=== PATIENT | female | born 1935 ===

== ENCOUNTER → 2016-03-25 | Outpatient (CLI) | payer MEDICARE, BC ==
[~2016-03-25] MED LIST: ARICEPT10 MG PO; ASPI325T6 PO; ASPIRIN E.C. 8181 MG PO; B COMPLEX #11 TA1 PO; BIOTIN5000 MCG PO; IPRATROPIUM BROM3 M1 IH; IRON 27 MG PO; MULTI VITAMINS1 TAB PO; NORCO 325 MG-7.1 TAB PO; NOVOLOG FLEX100 U/ML SQ; NOVOLOG MIX 70/33 ML SQ; PRINIVIL10 MG PO; PROFERRIN ES12 MG PO; TYLENOL 500MG500 MG PO; XANAX .25M0.25 MG/TA PO; ZOCOR 10MG10 MG PO
== END ==
LOC: ZCOL.LAB 12:32
DX: L97.419 Non-pressure chronic ulcer of right heel and midfoot with unspecified severity (principal); E11.69 Type 2 diabetes mellitus with other specified complication

== ENCOUNTER 2016-06-26 20:56 | Inpatient (IN) | payer MEDICARE, BC ==
[~2016-06-26] VITALS: Ht 165.1 cm; Wt 88.4 kg
[2016-06-26 23:30] LABS: INR 1.1 (0.8-3.0); PROTHROMBIN TIME 11.7 SECONDS (9.7-12.8)
[2016-06-26 23:36] LABS: ADJUSTED CALCIUM 8.9 mg/dL (8.4-10.2); ALBUMIN 3.3 gm/dL (3.5-5.0); BILIRUBIN,TOTAL 0.5 mg/dL (0.0-1.0); CALCIUM 8.3 mg/dL (8.4-10.2); POTASSIUM 5.1 mmol/L (3.4-5.0); TOTAL PROTEIN 5.9 gm/dL (6.4-8.2)
[2016-06-26 23:52] LABS: CREATININE, serum 1.19 mg/dL (0.52-1.25)
[2016-06-27] VITALS (12 sets, daily range): BP systolic 101–151; BP diastolic 40–91; PULSE 59–88; TEMP 97.3–98.8
[2016-06-27 00:47] LABS: PH 5 (5-8); SQUAMOUS EPITHELIAL None Seen /hpf; URINE APPEARANCE Clear; URINE BACTERIA Moderate /hpf; URINE BILIRUBIN Negative (NEGATIVE); URINE BLOOD Negative (NEGATIVE); URINE COLOR Yellow; URINE GLUCOSE Negative (NEGATIVE); URINE KETONE Negative (NEGATIVE); URINE RBC 0-2 /hpf; URINE UROBILINOGEN Negative (NEGATIVE); URINE WBC 0-2 /hpf
[2016-06-27] MEDS ORDERED: TYLENOL 500MG500 MG PO (02:08)
[2016-06-27] MEDS ORDERED: XANAX .25M0.25 MG/TA PO (02:09)
[2016-06-27] MEDS ORDERED: ASPIRIN E.C. 8181 MG PO (02:09)
[2016-06-27] MEDS ORDERED: B COMPLEX #11 TA1 PO (02:10)
[2016-06-27] MEDS ORDERED: ARICEPT10 MG PO (02:11)
[2016-06-27] MEDS ORDERED: PROFERRIN ES12 MG PO (02:13)
[2016-06-27] MEDS ORDERED: IRON 27 MG PO (02:14)
[2016-06-27] MEDS ORDERED: PRINIVIL10 MG PO (02:14)
[2016-06-27] MEDS ORDERED: ZOCOR 10MG10 MG PO (02:15)
[2016-06-27] MEDS ORDERED: NOVOLOG FLEX100 U/ML SQ (02:16)
[2016-06-27 08:55] LABS: MEAN CELL VOLUME 105 fl (80.0-100.0); MEAN CORPUSCULAR HGB CONC 32 g/dl (33.0-37.0); MEAN PLATELET VOLUME 9.6 fl (7.4-10.4); PLATELET COUNT 183 K/mm3 (130-400); RED BLOOD COUNT 2.38 M/mm3 (4.10-5.30); REDCELL DISTRIBUTION WIDTH-CV 13.3 % (11.5-14.5); WHITE BLOOD COUNT 9.2 K/mm3 (4.8-10.8)
[2016-06-27 08:56] LABS: HEMOGLOBIN 7.9 g/dl (12.5-16.0); MEAN CORPUSCULAR HEMOGLOBIN 33 pg (27.0-31.0)
[2016-06-27 09:14] LABS: CALCIUM 7.9 mg/dL (8.4-10.2); CREATININE, serum 0.98 mg/dL (0.52-1.25); POTASSIUM 5.2 mmol/L (3.4-5.0)
[2016-06-27] MEDS ORDERED: NOVOLOG MIX 70/33 ML SQ (11:33)
[2016-06-27] MEDS ORDERED: BIOTIN5000 MCG PO (11:41)
[2016-06-27] MEDS ORDERED: MULTI VITAMINS1 TAB PO (11:43)
[2016-06-28 02:11] VITALS: BP 109/52; PULSE 66; TEMP 97.5
[2016-06-28 05:09] VITALS: BP 116/69; PULSE 66; TEMP 97.4
[2016-06-28 08:51] LABS: BASO # 0.1 (0.0-0.2); BASO % 0.6 % (0.0-2.0); EOS % 0.5 % (0-4.0); GRAN # 5.6 (1.4-6.5); GRAN % 67.8 % (42.2-75.2); LYMPH # 1.5 (1.2-3.4); MEAN CORPUSCULAR HGB CONC 33 g/dl (33.0-37.0); MEAN PLATELET VOLUME 9.8 fl (7.4-10.4); MONO # 1.1 (0.1-0.6); MONO % 12.7 % (1.7-9.3); PLATELET COUNT 136 K/mm3 (130-400); RED BLOOD COUNT 2.51 M/mm3 (4.10-5.30); REDCELL DISTRIBUTION WIDTH-CV 17.2 % (11.5-14.5); WHITE BLOOD COUNT 8.3 K/mm3 (4.8-10.8)
[2016-06-28 08:59] LABS: HEMATOCRIT 24.3 % (37.0-47.0); MEAN CELL VOLUME 97 fl (80.0-100.0); MEAN CORPUSCULAR HEMOGLOBIN 32 pg (27.0-31.0)
[2016-06-28 09:26] VITALS: BP 121/63; PULSE 73; TEMP 98.1
[2016-06-28 09:28] LABS: ADJUSTED CALCIUM 8.5 mg/dL (8.4-10.2); ALBUMIN 2.3 gm/dL (3.5-5.0); BILIRUBIN,TOTAL 0.6 mg/dL (0.0-1.0); CALCIUM 7.1 mg/dL (8.4-10.2); CREATININE, serum 0.83 mg/dL (0.52-1.25); POTASSIUM 4.5 mmol/L (3.4-5.0); TOTAL PROTEIN 4.4 gm/dL (6.4-8.2)
[2016-06-28 14:21] VITALS: BP 118/48; PULSE 70; TEMP 98.7
[2016-06-28 17:47] VITALS: BP 117/51; PULSE 64; TEMP 98.6
[2016-06-28 21:59] VITALS: BP 108/48; PULSE 65; TEMP 99.1
[2016-06-29 01:07] VITALS: BP 130/45; PULSE 69; TEMP 98.3
[2016-06-29 06:30] VITALS: BP 128/59; PULSE 77; TEMP 98.7
[2016-06-29 07:36] LABS: HEMATOCRIT 21.6 % (37.0-47.0); HEMOGLOBIN 7.1 g/dl (12.5-16.0)
[2016-06-29 10:16] VITALS: BP 121/50; PULSE 72; TEMP 98.1
[2016-06-29 13:25] VITALS: BP 114/57; PULSE 68; TEMP 98.4
[2016-06-29 18:08] VITALS: BP 127/51; PULSE 70; TEMP 98.2
[2016-06-29 20:49] VITALS: BP 116/45; PULSE 72; TEMP 99.3
[2016-06-30 01:36] VITALS: BP 152/58; PULSE 74; TEMP 97.4
[2016-06-30 05:15] VITALS: BP 145/84; PULSE 89; TEMP 98.8
[2016-06-30 07:17] LABS: HEMATOCRIT 22.9 % (37.0-47.0); HEMOGLOBIN 7.5 g/dl (12.5-16.0)
[2016-06-30 07:29] LABS: ADJUSTED CALCIUM 9.1 mg/dL (8.4-10.2); ALBUMIN 2.4 gm/dL (3.5-5.0); BILIRUBIN,TOTAL 0.7 mg/dL (0.0-1.0); CALCIUM 7.8 mg/dL (8.4-10.2); CREATININE, serum 0.8 mg/dL (0.52-1.25); POTASSIUM 4.5 mmol/L (3.4-5.0); TOTAL PROTEIN 4.9 gm/dL (6.4-8.2)
[2016-06-30] MEDS ORDERED: IPRATROPIUM BROM3 M1 IH (08:54)
[2016-06-30] MEDS ORDERED: ASPI325T6 PO (08:56)
[2016-06-30] MEDS ORDERED: XANAX .25M0.25 MG/TA PO (09:00)
[2016-06-30] MEDS ORDERED: NORCO 325 MG-7.1 TAB PO (09:00)
[2016-06-30 10:29] VITALS: BP 92/70; PULSE 65; TEMP 98.3
[2016-06-30 12:42] VITALS: BP 115/43
[2016-06-30 13:29] VITALS: BP 131/74; PULSE 71; TEMP 98
[2016-06-30 13:57] VITALS: BP 131/74; PULSE 71; TEMP 98
== END 2016-06-30 14:35 | DRG 481 ==
LOC: SURG 20:56
PROVIDERS: Family Medicine; Nurse Practitioner Family; Orthopaedic Surgery Sports Medicine; Physician Assistant
PROC: 0QSB04Z Reposition Right Lower Femur with Internal Fixation Device, Open Approach (ICD-10-PCS; principal; 2016-06-27 12:30)
DX: S72.401A Unspecified fracture of lower end of right femur, initial encounter for closed fracture (principal); M97.11XA Periprosthetic fracture around internal prosthetic right knee joint, initial encounter; N17.9 Acute kidney failure, unspecified; L97.419 Non-pressure chronic ulcer of right heel and midfoot with unspecified severity; D62 Acute posthemorrhagic anemia; Z66 Do not resuscitate; W18.30XA Fall on same level, unspecified, initial encounter; I25.10 Atherosclerotic heart disease of native coronary artery without angina pectoris; Z95.1 Presence of aortocoronary bypass graft; I12.9 Hypertensive chronic kidney disease with stage 1 through stage 4 chronic kidney disease, or unspecified chronic kidney disease; E11.22 Type 2 diabetes mellitus with diabetic chronic kidney disease; N18.9 Chronic kidney disease, unspecified; Z87.891 Personal history of nicotine dependence; Z95.0 Presence of cardiac pacemaker; E11.621 Type 2 diabetes mellitus with foot ulcer; E87.5 Hyperkalemia; Z79.4 Long term (current) use of insulin; J44.9 Chronic obstructive pulmonary disease, unspecified; D50.0 Iron deficiency anemia secondary to blood loss (chronic)
CPT/HCPCS: 99222-AI; 99232-AI; 99233-AI; 99239; A4315; A9284; C1713; C1776; J0690; J1815; J2250; J2270; J2405; J2704; J7030; P9016

== ENCOUNTER → 2016-07-23 | Outpatient (REF) | LOC: ZCOL.LAB 14:14 | DX: Z01.89 Encounter for other specified special examinations (principal) ==

== ENCOUNTER 2018-09-23 21:57 | Inpatient (IN) | payer MEDICARE, BC ==
[~2018-09-23] VITALS: Ht 165.1 cm; Wt 61.5 kg
[2018-09-24] LABS: HEMATOCRIT 28.1 % (37.0-47.0); HEMOGLOBIN 8.9 g/dl (12.5-16.0); MEAN CELL VOLUME 98 fl (80.0-100.0); MEAN CORPUSCULAR HEMOGLOBIN 31 pg (27.0-31.0); MEAN CORPUSCULAR HGB CONC 32 g/dl (33.0-37.0); MEAN PLATELET VOLUME 8.9 fl (7.4-10.4); PLATELET COUNT 323 K/mm3 (130-400); RED BLOOD COUNT 2.86 M/mm3 (4.10-5.30); REDCELL DISTRIBUTION WIDTH-CV 15.1 % (11.5-14.5)
[2018-09-24 00:12] LABS: BILIRUBIN,TOTAL 0.2 mg/dL (0.0-1.0); C-REACTIVE PROTEIN 0.6 mg/dL (0.0-0.9); CALCIUM 8.2 mg/dL (8.4-10.2); CREATININE, serum 0.94 (0.52-1.25); POTASSIUM 3.8 mmol/L (3.4-5.0); TOTAL PROTEIN 5.6 gm/dL (6.4-8.2)
[2018-09-24 00:14] LABS: COLLECTION METHOD CATHETER
[2018-09-24 00:22] LABS: PH 5 (5-8); SQUAMOUS EPITHELIAL None Seen /hpf; URINE APPEARANCE Clear; URINE BACTERIA Many /hpf; URINE BILIRUBIN Negative (NEGATIVE); URINE BLOOD Negative (NEGATIVE); URINE COLOR Yellow; URINE GLUCOSE Negative (NEGATIVE); URINE KETONE Negative (NEGATIVE); URINE LEUKOCYTE ESTERASE Negative (NEGATIVE); URINE NITRATE Negative (NEGATIVE); URINE PROTEIN(semi-quant) Negative (NEGATIVE); URINE RBC None Seen /hpf; URINE UROBILINOGEN Negative (NEGATIVE)
[2018-09-24 00:30] LABS: ANISOCYTOSIS 1+; BAND 6 % (0-10); LYMPHOCYTE 3 % (20.0-51.0); METAMYELOCYTE 2 % (0-0); NEUTROPHILS 86 % (42.0-75.2); PLATELET ESTIMATE NORMAL (NORMAL)
[2018-09-24 00:31] LABS: HYPOCHROMIA 1+
[2018-09-24 02:56] VITALS: BP 129/67; BP 157/20; PULSE 109; TEMP 98.3
[2018-09-24] MEDS ORDERED: NORCO 325 MG-51 TAB PO (03:10)
[2018-09-24] MEDS ORDERED: NYSTATIN CREAM15 GM TP (03:12)
[2018-09-24] MEDS ORDERED: PREPARATIO1 SUPP.REC RC (03:13)
[2018-09-24] MEDS ORDERED: PRILOSEC 20MG20 MG PO (03:14)
[2018-09-24] MEDS ORDERED: TESSALON P100 MG/CAP PO (03:18)
[2018-09-24] MEDS ORDERED: VITAMIN C500 MG PO (03:18)
[2018-09-24] MEDS ORDERED: XANAX .25M0.25 MG/TA PO ×2 (03:19)
[2018-09-24 06:41] LABS: HEMATOCRIT 27.2 % (37.0-47.0); HEMOGLOBIN 8.8 g/dl (12.5-16.0); MEAN CELL VOLUME 98 fl (80.0-100.0); MEAN CORPUSCULAR HEMOGLOBIN 32 pg (27.0-31.0); MEAN CORPUSCULAR HGB CONC 32 g/dl (33.0-37.0); MEAN PLATELET VOLUME 9.3 fl (7.4-10.4); PLATELET COUNT 307 K/mm3 (130-400); RED BLOOD COUNT 2.78 M/mm3 (4.10-5.30); REDCELL DISTRIBUTION WIDTH-CV 15.2 % (11.5-14.5)
[2018-09-24 06:56] LABS: ANION GAP 7 mmol/L (7-16); BLOOD UREA NITROGEN 20 mg/dL (7-17); CALCIUM 8.3 mg/dL (8.4-10.2); CARBON DIOXIDE 26 mmol/L (22-30); CHLORIDE 105 mmol/L (98-107); CREATININE, serum 0.85 (0.52-1.25); GLUCOSE 92 mg/dL (74-106); POTASSIUM 4.2 mmol/L (3.4-5.0); SODIUM 139 mmol/L (137-145)
[2018-09-24 07:08] LABS: TROPONIN-I < 0.012 ng/mL (0.000-0.035)
[2018-09-24 07:30] VITALS: BP 124/76; PULSE 73; TEMP 97.8
[2018-09-24 07:50] LABS: ANISOCYTOSIS 1+; BAND 6 % (0-10); EOSINOPHIL 1 % (0-4); LYMPHOCYTE 8 % (20.0-51.0); METAMYELOCYTE 1 % (0-0); NEUTROPHILS 83 % (42.0-75.2); PLATELET ESTIMATE NORMAL (NORMAL)
[2018-09-24 07:51] LABS: HYPOCHROMIA 1+
--- NOTE | 2018-09-24 09:12 | NUR ---
Report from VICTORINO Avendaño. Pt in bed with IVF to LAC, RFA dressed with mepilexes and karli, scab to right cheek, dry. Pt states name and , that she is in the hospital, before here she states she was at her apartment in [place]- pt came from [facility]. Pt yells out, "oh my god," and resists turning for ryan cares after stating she had a BM. [place] given for pain. Pt asked about her "teeth" and could not find any dentures in pt's belongings or room. Son Chandler visited briefly. Pt took pills one at a time with water. Briefs in place. Tele called to report HR in 130's briefly.
--- NOTE | 2018-09-24 10:20 | NUR ---
ERINN contacted patient's daughter/DPOA, Wally, about discharge planning. Patient lives at [facility]. Wally reports patient will return there upon discharge. ERINN completed choice form. Patient's PCP is Dr Ruano and [facility] provides all medications. Patient uses a wheelchair for mobility. Patient's DPOA is Wally and a copy is in the EMR. ERINN faxed updates to Wilmer.
--- NOTE | 2018-09-24 10:26 | NUR ---
Pt asleep with HOB at 45*, respirations with ease, alarm on, call lt in reach.
[2018-09-24 12:15] VITALS: BP 121/64; PULSE 70; TEMP 97.8
--- NOTE | 2018-09-24 14:55 | NUR ---
Pt's son Chandler and daughter visiting.
[2018-09-24 16:54] VITALS: BP 108/65; PULSE 100; TEMP 98.2
--- NOTE | 2018-09-24 17:25 | NUR ---
ALEJO Kemp reports pt's BG elevated, however, family has been visiting and found a milkshake carton in trash in room.
[2018-09-24 19:19] VITALS: BP 132/70; PULSE 54; TEMP 98.5
--- NOTE | 2018-09-24 19:48 | NUR ---
Pt conts to call out rather than use call light, and yells when assisted with rolling for incont cares. CNAs changing pt at shift change, report to VICTORINO Carnes. INF to FUNMI, yellow gripper socks, gown and tele in place.
--- NOTE | 2018-09-24 21:00 | NUR ---
Pt. laying in bed at this time. Pt. has been yelling out frequently through the evening. Giving pain meds and anxiety meds to help. Pt. is alert to self and that she is in the hospital. Pt. is not aware of the year or that she came from a [place] [facility]. IV to lt. ac patent, IV fluids infusing per orders. Call light within reach.
[2018-09-25] VITALS (7 sets, daily range): BP systolic 112–149; BP diastolic 56–90; PULSE 66–103; TEMP 97.6–98.2
--- NOTE | 2018-09-25 08:00 | NUR ---
PATIENT IS DROWSY BUT AROUSES EASILY TO NAME. PATIENT IS ALERT AND ORIENTED TO NAME, DATE, AND SHE SAYS THAT SHE KNOWS THAT SHE IS IN THE HOSPITAL. GENERALIZED WEAKNESS. IRREGULAR HEART RHYTHM WITH REGULAR RATE NOTED. TELE IN PLACE. PATIENT TOLERATING DIET WITHOUT N/V. POSITIVE PEDAL PULSES EQUAL BILATERALLY. SCD'S TO BLE. BLE ELEVATED WITH PILLOWS. PATIENT REPORTS A PRODUCTIVE COUGH. LACERATION TO RIGHT CHEEK WITH ECCHYMOSIS, LACERATION MANAGER PRICING WITH CLOSED SCAB. MULTIPLE SKIN TEARS TO RIGHT FOREARM DRESSED WITH A GAUZE & MIRIAM WRAP DRESSING AND IS CD&I. LEFT FOREARM SKIN TEAR DRESSED WITH A TEGADERM DRESSING AND IS CD&I. BLOODY DRAINAGE AROUND LEFT AC IV NOTED. IV FLUIDS DISCONNECTED. CALL LIGHT WITHIN REACH. NO OTHER NEEDS AT THIS TIME. FAMILY PRESENT AT THE BEDSIDE.
[2018-09-25 10:49] LABS: CREATININE, serum 0.71 (0.52-1.25)
--- NOTE | 2018-09-25 11:10 | NUR ---
EDIS RAGLAND NOTIFIED OF ORTHO CONSULT.
--- NOTE | 2018-09-25 19:13 | NUR ---
REPORT GIVEN TO VICTORINO GRANT.
--- NOTE | 2018-09-25 20:40 | NUR ---
Patient in bed, awake. States, 10/10 generalized pain after movement on/off bedpan. PO pain medication not due, IV pain medication given per order. Right hand skin tear open, and scant amount of blood noted. Site cleansed and badaid placed. Denies further needs at this time. Will continue to monitor.
[2018-09-26] VITALS (7 sets, daily range): BP systolic 116–135; BP diastolic 29–79; PULSE 71–85; TEMP 97.6–98.4
[2018-09-26 06:53] LABS: BASO # 0.1 (0.0-0.2); BASO % 0.7 % (0.0-2.0); EOS # 0.2 (0.0-0.7); EOS % 2.2 % (0-4.0); GRAN # 7.4 (1.4-6.5); LYMPH # 1.2 (1.2-3.4); LYMPH % 12.2 % (20.0-51.0); MEAN CELL VOLUME 99 fl (80.0-100.0); MEAN CORPUSCULAR HGB CONC 32 g/dl (33.0-37.0); MEAN PLATELET VOLUME 9.6 fl (7.4-10.4); MONO # 0.7 (0.1-0.6); MONO % 7.1 % (1.7-9.3); PLATELET COUNT 252 K/mm3 (130-400); RED BLOOD COUNT 2.65 M/mm3 (4.10-5.30); REDCELL DISTRIBUTION WIDTH-CV 15.5 % (11.5-14.5)
[2018-09-26 06:55] LABS: HEMATOCRIT 26.3 % (37.0-47.0); HEMOGLOBIN 8.3 g/dl (12.5-16.0); MEAN CORPUSCULAR HEMOGLOBIN 31 pg (27.0-31.0)
--- NOTE | 2018-09-26 07:00 | NUR ---
bedside shift report received from VICTORINO Garcia
--- NOTE | 2018-09-26 07:05 | NUR ---
End of shift report given to VICTORINO Schmitz.
--- NOTE | 2018-09-26 07:06 | NUR ---
Pt yelling out that she is in pain. Dilaudid 0.125mL given IV push.
[2018-09-26 07:11] LABS: CALCIUM 8.3 mg/dL (8.4-10.2); CREATININE, serum 0.85 (0.52-1.25); POTASSIUM 4.4 mmol/L (3.4-5.0)
--- NOTE | 2018-09-26 08:10 | NUR ---
continues to cry out and c/o pain, repositiooned to left side and cries out , was incontinent of urine and care provided, full assessment completed, see interventions for further info, dressing to right arm removed, has a mepiplex dressing to right forearm just below elbow that is CD&I, has 4-5cm skin tear to left elbow, covered with tegaderm and wrapped with gauze and karli wrap, medicated with hydrocodone 5mg 1 tab for c/os pain, breakfast ordered [id number] at bedside
--- NOTE | 2018-09-26 09:45 | NUR ---
resting in bed after breakfast, continues to c/o pain but states pain pill did help
--- NOTE | 2018-09-26 09:54 | NUR ---
SW attended clinical rounds. Patient's daughter in law, Paola, was present and voiced concerns with patient returning to [facility]. SW informed Paola that patient's daughter/DPOA, Wally, informed SW that she would like patient to return to [facility] when she is discharged. Paola reports she plans to speak with all 5 of patient's children about her concerns with the care she gets at [facility]. ERINN will contact Wally about Paola's concerns.
--- NOTE | 2018-09-26 10:07 | NUR ---
SW attempted to contact patient's daughter, Wally ([phone]), to discuss patient returing to [facility]. SW left a message.
--- NOTE | 2018-09-26 10:30 | NUR ---
resting quietly with family at bedside, medicated with scheduled tramadol 50mg po
--- NOTE | 2018-09-26 10:52 | NUR ---
Initial visit; Patient thanked Forensic Psychiatrist for looking in on her and giving her a drink of water and praying with her. Patient states she is in a great deal of pain when she moves. Forensic Psychiatrist stayed with her until the pain subsided and will check on her again.
--- NOTE | 2018-09-26 12:18 | NUR ---
physical therapy was in to work with patient and assited her out of bed and into recliner, now sitting up eating lunch, family at bedside
--- NOTE | 2018-09-26 13:00 | NUR ---
remains up in chair, encouraged to stay up for a while longer and verbalizes understanding, medicated with hydrocodone 5mg 1 tab, is quiet and denies pain while resting
--- NOTE | 2018-09-26 14:18 | NUR ---
SW met with patient, daughter-Micki, son-Chandler, [id number] Paola, and daughter/DPOA-Wally (via phone) to discuss discharge plan. Patient and family have voiced concerns with patient returning to [facility] and would prefer patient to go to [facility] for post acute rehab. SW explained to patient and family that in order for medicare to pay for a skilled stay, there a certian requirements that need to be met. SW explained the 3 midnight rule but also that 3 midnights may not be medically necessary. Patient reported that her first choice is [facility] and second choice is [facility]. SW will fax referral to [facility]. ERINN informed Faheem from [facility] of the concerns. Faheem reports she was unaware of families concerns with the care she is receiving.
--- NOTE | 2018-09-26 14:23 | NUR ---
resting in bed visiting and saying niurka with her daughter
--- NOTE | 2018-09-26 15:15 | NUR ---
assisted up to bedside commode, cries out with movement but is able to manage, then back to bed
--- NOTE | 2018-09-26 16:16 | NUR ---
ERINN faxed a referral to [facility] and also spoke with Calixto about the referral. Calixto reports she will have the clinical team review the referral.
--- NOTE | 2018-09-26 16:37 | NUR ---
ERINN spoke with Calixto from [facility]. Patient was not accepted to [facility] due to no beds in the type of unit she would need for dementia. ERINN then met with patient and daughter-iMcki. ERINN informed them that patient was not accepted to [facility]. ERINN also reported that Faheem from [facility] has been made aware of their concerns and she plans to have a care plan meeting with patient and family when patient returns to [facility]. Micki reports she will inform Wally about [facility] not accepting patient.
--- NOTE | 2018-09-26 18:00 | NUR ---
sitting up in bed eating supper, medicated with hydrocodone 5mg 1 tab
--- NOTE | 2018-09-26 18:57 | NUR ---
bedside shift report given to VICTORINO Geiger
--- NOTE | 2018-09-26 21:00 | NUR ---
Patient in bed, calls out "oh God" and reports pain to right leg 10/10. Medicated with scheduled Tramadol and Xanax at this time. Has fading bruise to right cheek. Skin tears to right arm covered with dressings. Right foot with mild swelling, to wear ortho shoe when up.
--- NOTE | 2018-09-26 22:00 | NUR ---
Assisted to BSC with 2 assist. Patient transfers fair, moderate yelling out with movement. Has reddened coccyx, does have egg crate mattress overlay on the bed. Able to void and assisted back to bed.
--- NOTE | 2018-09-26 23:58 | NUR ---
Yelling out in pain, Hi 2 tabs po now for pain 11/29.
[2018-09-27 03:39] VITALS: BP 126/70; PULSE 71; TEMP 98.1
--- NOTE | 2018-09-27 03:39 | NUR ---
Was assisted to BSC, max assist of 2. Poor weight bearing. Voids and back to bed. Reports pain 10/10 to right leg. Has not slept more than 30min. this shift, persistently yelling out. Medicated with [place] 5/325mg 2 tabs now and Xanax 0.25mg po now.
--- NOTE | 2018-09-27 05:45 | NUR ---
Patient assisted to BSC, voids and back to bed. Did rest 2 hours after meds were given. Takes AM med without problem. Has not been incontinent this shift.
[2018-09-27 07:05] LABS: BASO # 0.1 (0.0-0.2); BASO % 0.7 % (0.0-2.0); EOS # 0.3 (0.0-0.7); EOS % 4.1 % (0-4.0); GRAN # 4.5 (1.4-6.5); GRAN % 66.8 % (42.2-75.2); LYMPH # 1.3 (1.2-3.4); LYMPH % 18.5 % (20.0-51.0); MEAN CELL VOLUME 98 fl (80.0-100.0); MEAN CORPUSCULAR HGB CONC 32 g/dl (33.0-37.0); MONO # 0.6 (0.1-0.6); MONO % 8.9 % (1.7-9.3); PLATELET COUNT 214 K/mm3 (130-400); RED BLOOD COUNT 2.52 M/mm3 (4.10-5.30); REDCELL DISTRIBUTION WIDTH-CV 15.3 % (11.5-14.5)
[2018-09-27 07:08] LABS: HEMATOCRIT 24.6 % (37.0-47.0); HEMOGLOBIN 7.8 g/dl (12.5-16.0); MEAN CORPUSCULAR HEMOGLOBIN 31 pg (27.0-31.0)
[2018-09-27 07:15] LABS: CALCIUM 8.3 mg/dL (8.4-10.2); CREATININE, serum 0.9 (0.52-1.25); POTASSIUM 4.3 mmol/L (3.4-5.0)
--- NOTE | 2018-09-27 08:00 | NUR ---
PATIENT IS SITTING UP IN BED WITH FAMILY PRESENT AT BEDSIDE. PATIENT IS A&O TO NAME, BIRTHDATE AND THAT SHE'S IN THE HOSPITAL. VSS. BOWEL SOUNDS ACTIVE ALL FOUR QUADRANTS WITHOUT ANY COMPLAINTS OF N/V. GENERALIZED WEAKNESS NOTED. ABDOMEN IS DISTENDED BUT SOFT TO PALPATION. MULTIPLE SKIN TEARS TO RIGHT FOREARM DRESSED WITH MEPLEX AND GAUZE AND MIRIAM WRAP DRESSINGS. LEFT FOREARM TO INT. CALL LIGHT WITHIN REACH. PATIENT DENIES ANY OTHER NEEDS AT THIS TIME.
[2018-09-27] MEDS ORDERED: NORCO 325 MG-51 TAB PO (11:19)
[2018-09-27] MEDS ORDERED: SENNA-S 50 MG-81 TAB PO (11:20)
[2018-09-27] MEDS ORDERED: ULTRAM 50MG TAB50 MG PO (11:20)
[2018-09-27] MEDS ORDERED: MIRALAX PA17 GM/Dose PO (11:20)
--- NOTE | 2018-09-27 11:45 | NUR ---
SW attended clinical rounds. Patient's son-Chandler and daughter in law Paola were also present. Patient will discharge back to [facility] today. Patient will recieve medicare part B PT and OT. SW scheduled transportation for 3pm and faxed discharge orders.
[2018-09-27 12:12] VITALS: BP 126/70; PULSE 71; TEMP 98.1
[2018-09-27 12:55] VITALS: BP 143/66; PULSE 64; TEMP 98.2
--- NOTE | 2018-09-27 14:57 | NUR ---
PATIENT'S LEFT FOREARM INT DISCONTINUED PER PENDING DISCHARFE. TIP INTACT. PATIENT TOLERATED WELL. REPORT CALLED TO CADEN GRANDE AT [facility].
--- NOTE | 2018-09-27 15:20 | NUR ---
PATIENT PRE-MEDICATED WITH [facility] PRIOR TO TRANSPORT TO [facility].
--- NOTE | 2018-09-27 15:23 | NUR ---
PATIENT TAKEN TO PRIVATE TRANSPORT VEHICLE VIA WHEELCHAIR. PATIENT TRANSFERRED.
== END 2018-09-27 15:23 | DRG 535 ==
LOC: COL.ER 21:57 → SURG 09-24 02:16
PROVIDERS: Emergency Medicine; Nurse Practitioner Family; Physician Assistant; ADMIT Internal Medicine
DX: S32.592A Other specified fracture of left pubis, initial encounter for closed fracture (principal); J18.9 Pneumonia, unspecified organism; R52 Pain, unspecified; S32.591A Other specified fracture of right pubis, initial encounter for closed fracture; S01.411A Laceration without foreign body of right cheek and temporomandibular area, initial encounter; W06.XXXA Fall from bed, initial encounter; D35.02 Benign neoplasm of left adrenal gland; Z96.641 Presence of right artificial hip joint; Z95.1 Presence of aortocoronary bypass graft; I25.10 Atherosclerotic heart disease of native coronary artery without angina pectoris; E11.22 Type 2 diabetes mellitus with diabetic chronic kidney disease; N18.9 Chronic kidney disease, unspecified; I12.9 Hypertensive chronic kidney disease with stage 1 through stage 4 chronic kidney disease, or unspecified chronic kidney disease; I48.91 Unspecified atrial fibrillation; J44.9 Chronic obstructive pulmonary disease, unspecified; E78.5 Hyperlipidemia, unspecified; Z88.6 Allergy status to analgesic agent; Z88.1 Allergy status to other antibiotic agents; Z88.5 Allergy status to narcotic agent; Z88.8 Allergy status to other drugs, medicaments and biological substances; K59.00 Constipation, unspecified; S92.331D Displaced fracture of third metatarsal bone, right foot, subsequent encounter for fracture with routine healing; S92.343D Displaced fracture of fourth metatarsal bone, unspecified foot, subsequent encounter for fracture with routine healing; R91.1 Solitary pulmonary nodule
CPT/HCPCS: 99232-AI; 99239; G0378; J1170; J2405; J3010; J7030

== ENCOUNTER → 2018-10-03 | Outpatient (CLI) | payer MEDICARE, BC ==
[~2018-10-03] MED LIST changes: +MIRALAX PA17 GM/Dose PO; +NORCO 325 MG-51 TAB PO; +NYSTATIN CREAM15 GM TP; +PREPARATIO1 SUPP.REC RC; +PRILOSEC 20MG20 MG PO; +SENNA-S 50 MG-81 TAB PO; +TESSALON P100 MG/CAP PO; +ULTRAM 50MG TAB50 MG PO; +VITAMIN C500 MG PO
[2018-10-03 20:35] LABS: BASO # 0.1 (0.0-0.2); BASO % 0.8 % (0.0-2.0); EOS # 0.2 (0.0-0.7); EOS % 2.1 % (0-4.0); GRAN # 6.2 (1.4-6.5); GRAN % 81.2 % (42.2-75.2); LYMPH # 0.6 (1.2-3.4); LYMPH % 8.4 % (20.0-51.0); MEAN CELL VOLUME 99 fl (80.0-100.0); MEAN CORPUSCULAR HGB CONC 31 g/dl (33.0-37.0); MONO # 0.5 (0.1-0.6); MONO % 6.5 % (1.7-9.3); PLATELET COUNT 289 K/mm3 (130-400); RED BLOOD COUNT 2.92 M/mm3 (4.10-5.30); REDCELL DISTRIBUTION WIDTH-CV 15.3 % (11.5-14.5)
[2018-10-03 20:36] LABS: HEMATOCRIT 28.8 % (37.0-47.0); HEMOGLOBIN 8.9 g/dl (12.5-16.0); MEAN CORPUSCULAR HEMOGLOBIN 30 pg (27.0-31.0)
[2018-10-03 20:43] LABS: ALBUMIN 2.6 gm/dL (3.5-5.0); BILIRUBIN,TOTAL 0.4 mg/dL (0.0-1.0); CALCIUM 8.5 mg/dL (8.4-10.2); CREATININE, serum 0.94 (0.52-1.25); POTASSIUM 4.1 mmol/L (3.4-5.0); TOTAL PROTEIN 5.2 gm/dL (6.4-8.2)
== END ==
LOC: ZCOL.LAB 10:40
PROVIDERS: Surgery
DX: E11.9 Type 2 diabetes mellitus without complications (principal); I50.9 Heart failure, unspecified

== ENCOUNTER 2018-10-25 20:39 | Emergency (ER) | payer MEDICARE, BC ==
[2018-10-25 20:42] VITALS: TEMP 97.8
[2018-10-25 22:29] VITALS: BP 138/84; PULSE 86
== END 2018-10-25 22:27 | disposition home or self-care (01) ==
LOC: COL.ER 20:39
DX: S01.01XA Laceration without foreign body of scalp, initial encounter (principal); I10 Essential (primary) hypertension; E11.9 Type 2 diabetes mellitus without complications; F03.90 Unspecified dementia, unspecified severity, without behavioral disturbance, psychotic disturbance, mood disturbance, and anxiety; Z79.4 Long term (current) use of insulin; W19.XXXA Unspecified fall, initial encounter; Y92.129 Unspecified place in nursing home as the place of occurrence of the external cause

== ENCOUNTER → 2019-01-03 | Outpatient (CLI) | payer MEDICARE, BC ==
[2019-01-03 12:53] LABS: BASO # 0.1 (0.0-0.2); BASO % 0.7 % (0.0-2.0); EOS # 0.1 (0.0-0.7); EOS % 1.1 % (0-4.0); GRAN # 6.5 (1.4-6.5); GRAN % 72.6 % (42.2-75.2); HEMOGLOBIN 10.8 g/dl (12.5-16.0); LYMPH # 1.6 (1.2-3.4); LYMPH % 17.8 % (20.0-51.0); MEAN CELL VOLUME 95 fl (80.0-100.0); MEAN CORPUSCULAR HEMOGLOBIN 30 pg (27.0-31.0); MEAN CORPUSCULAR HGB CONC 32 g/dl (33.0-37.0); MEAN PLATELET VOLUME 10.1 fl (7.4-10.4); MONO # 0.7 (0.1-0.6); MONO % 7.5 % (1.7-9.3); PLATELET COUNT 267 K/mm3 (130-400); RED BLOOD COUNT 3.62 M/mm3 (4.10-5.30)
[2019-01-03 12:55] LABS: HEMATOCRIT 34.3 % (37.0-47.0)
[2019-01-03 13:38] LABS: ALBUMIN 3.5 gm/dL (3.5-5.0); BILIRUBIN,TOTAL 0.4 mg/dL (0.0-1.0); CALCIUM 9.1 mg/dL (8.4-10.2); CREATININE, serum 0.84 (0.52-1.25); POTASSIUM 4.7 mmol/L (3.4-5.0); TOTAL PROTEIN 6.4 gm/dL (6.4-8.2)
[2019-01-03 13:45] LABS: PRE ALBUMIN 17.6 mg/dL (17.6-36.0)
[2019-01-03 14:08] LABS: THYROID STIMULATING HORMONE 1.14 uIU/mL (0.465-4.680)
== END ==
LOC: ZCOL.LAB 12:13
PROVIDERS: Emergency Medicine
DX: E11.9 Type 2 diabetes mellitus without complications (principal)